=== PATIENT | male | born 1955 | race Caucasian/White ===

== ENCOUNTER 2016-09-01 07:35 | Day surgery (SDC) | payer BC ==
--- NOTE | ~2016-09-01 | EGD ---
EGD REPORT [facility] [address] [id number] NAME: DEVON GUERRA : 59 STATUS : REG [facility]#: [id number] AGE: 61 ADM/REG DATE : 09/01/16 MR#: [id number] REPORT SERV DATE: 09/01/16 DICTATED BY: NICK DOAN DATE: 09/01/16 REPORT STATUS : Draft TRANSCRIBED BY: [facility] DATE: 09/01/16 [facility] Patient Name: Devon Guerra Date of : 1955 Attending MD: NICK DOAN MD Procedure Date No Time: 09/01/2016 Procedure: Colonoscopy Indications: Screening for colorectal malignant neoplasm Referring MD: SHIRA WELLS Medicines: Propofol per Anesthesia Complications: No immediate complications. Procedure: Pre-Anesthesia Assessment: - ASA Grade Assessment: I - A normal, healthy patient. After I obtained informed consent, the scope was passed under direct vision. Throughout the procedure, the patient's blood pressure, pulse, and oxygen saturations were monitored continuously. The CF [id number] was introduced through the anus and advanced to the cecum, identified by appendiceal orifice and ileocecal valve. The colonoscopy was performed without difficulty. The patient tolerated the procedure well. The quality of the bowel preparation was good. Findings: The colon (entire examined portion) appeared normal. Impression: - The entire examined colon is normal. Recommendation: - Discharge patient to home (ambulatory). - Repeat colonoscopy in 10 years for screening purposes. Procedure Code(s): --- Professional --- G0121, Colorectal cancer screening; colonoscopy on individual not meeting criteria for high risk Diagnosis Code(s): --- Professional --- Z12.11, Encounter for screening for malignant neoplasm of colon CPT copyright 2013 [employer] [employer]. All rights reserved. The codes documented in this report are preliminary and upon remote medical coder review may be revised to meet current compliance requirements. EGD REPORT [facility] [address] [id number] NAME: DEVON GUERRA : [birth year] STATUS : REG [facility] PAT#: [id number] AGE: 61 ADM/REG DATE : 09/01/16 MR#: [id number] REPORT SERV DATE: 09/01/16 DICTATED BY: NICK DOAN. DATE: 09/01/16 REPORT STATUS : Draft TRANSCRIBED BY: [facility] DATE: 09/01/16 Nick Doan MD NICK DOAN MD 09/01/2016 9:30 AM This report has been signed electronically. Number of Addenda: 0 Note Initiated On: 09/01/2016 8:56 AM Scope Withdrawal Time 0 hours 6 minutes 11 seconds [address] [id number]
[~2016-09-01 07:35] MED LIST: IBU-200200 MG PO; MOBIC15 MG PO; MULTIPLE VIT PO
== END 2016-09-01 23:59 | disposition home or self-care (01) ==
LOC: DMU 07:35
PROVIDERS: Internal Medicine Gastroenterology
PROC: 0DJD8ZZ Inspection of Lower Intestinal Tract, Via Natural or Artificial Opening Endoscopic (ICD-10-PCS; principal; 2016-09-01 09:00)
DX: Z12.11 Encounter for screening for malignant neoplasm of colon (principal)